=== PATIENT | male | born 1940 | race Hispanic/Latino ===

== ENCOUNTER 2017-08-11 13:48 | Outpatient (CLI) | payer MEDICARE ==
--- NOTE | 2017-08-11 14:59 | XRay Report ---
XRAY RIGHT KNEE 4 THREE VIEWS: 08/11/17 CLINICAL: Right knee pain. FINDINGS: Narrowing of the medial joint space with near complete loss of the joint space. Small medial osteophytes. Widening of the lateral joint space. Patellofemoral osteophytes and patellar enthesophytes. Several calcific densities at the superior aspect of the patella are suspicious for intra-articular loose bodies.No joint effusion.Normal soft tissues. 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 Possible loose bodies in the superior aspect of the joint.
== END 2017-08-11 13:49 | disposition home or self-care (01) ==
LOC: SPVIMAG 13:48
PROVIDERS: ATTEND Orthopaedic Surgery Sports Medicine
DX: M17.11 Unilateral primary osteoarthritis, right knee (principal)